=== PATIENT | female | born 1975 | race Caucasian/White ===

== ENCOUNTER 2018-07-15 09:24 | Outpatient (CLI) | payer OTHER ==
[~2018-07-15] VITALS: Ht 154.9 cm; Wt 86.4 kg
--- NOTE | ~2018-07-15 | HEMODYNAMI ---
PATIENT:YELENA WHITNEY MEDICAL RECORD: [id number] : 71 LOCATION:[facility] ADMISSION DATE: 07/15/18 Generatedon:07/15/201813:27 Patient name: YELENA WHITNEY Patient #: [id number] SSN: : 1975 Date of study: 07/15/2018 Page: Of Hemodynamic Procedure Report Patient Data Patient Demographics Procedure consent was obtained First Name: YELENA Gender: Female Last Name: DEVONTE : 1975 Patient #: [id number] Age: 43 year(s) Race: Additional ID: [id number] Contact details [address]: [address] [place] [address] State: [place] City: [place] Zip code: [address] Admission Admission Data Admission Date: 07/15/2018 Admission Time: 9:24 Arrival Date: 07/15/2018 Arrival Time: 13:00 Admit Source: Other Insurance Payor: Private health insurance Height (in.): 61 BSA: 1.85 (m2) Height (cm.): 154.94 BMI: 35.9 (kg/m2) Weight (lbs.): 190 Weight (kg.): 86.18 Lab Results Lab Result Date: 07/15/2018 Lab Result Time: 0:00 Biochemistry Name Units Result Min Max BUN mg/dl 17 --(---*)-- 7 18 Creatinine mg/dl 0.8 --(-*--)-- 0.6 1.3 CBC Name Units Result Min Max Hemoglobin g/dl 12.4 *-(----)-- 13.5 17.5 Procedure Procedure Types Cath Procedure Diagnostic Procedure C [facility] w/Coronaries Sedation Charges Moderate Sedation up to 15 minutes Procedure Description Procedure Date Procedure Date: 07/15/2018 Procedure Start Time: 13:11 Procedure End Time: 13:20 Procedure Staff Name Function Johann Graham MD Performing Physician Malka Gunderson RT Monitor Mike Rodriguez RN Nurse Sravanthi Mei RT Scrub Procedure Data Cath Procedure Fluoroscopy Diagnostic fluoroscopy Total fluoroscopy Time: 1.3 time: 1.3 min min Diagnostic fluoroscopy Total fluoroscopy dose: 336 dose: 336 mGy mGy Contrast Material Contrast Material Type Amount (ml) Isovue 300 47 Entry Location Entry Primary Successful Side Size Upsize Upsize Entry Closure Succes sful Closure Location (Fr) 1 (Fr) 2 (Fr) Remarks Device Remarks Femoral Right 6 Fr Vascade artery Short Closure System Estimated blood loss: 5 ml Diagnostic catheters Device Type Used For End Catheter Placement MULTIPACK JL 4.0 5Fr Left Coronary catheter Angiography MULTIPACK 3DRC 5Fr Right Coronary catheter Angiography MULTIPACK Pigtail 5 Fr LV Angiography catheter Procedure Complications No complications Procedure Medications Medication Administration Route Dosage Oxygen etCO2 Nasal cannula 2 l/min Lidocaine 2% added to field 20 Heparin Flush Bag added to field 2 bags (1000units/500ml NS) 0.9% NaCl I.V. 100 ml/hr Versed I.V. 2 mg Fentanyl I.V. 100 mcg Versed I.V. 1 mg Fentanyl I.V. 50 mcg Hemodynamics Rest BSA: 1.85 (m2) HGB: 12.4 (g/dl) O2 Consumption: Estimated: 191.51 (ml/min) O2 Co nsumption indexed: Estimated:103.52 (ml/min/m) Heart Rate: 80 (bpm) Pressure Samples Time Site Value (mmHg) Purpose Heart Use Rate(bpm) 13:16 LV 97/2,8 Snapshot 74 13:17 AO 101/61(78) Pullback 72 13:17 LV 91/7,11 Pullback 72 Gradients Valve Time Site 1 Site 2 Mean SEP/DFP Peak To Heart Use (mmHg) (sec/min) Peak Rate (mmHg) (bpm) Aortic 13:17 LV AO 0 11 0 72 91/7,11 101/61(78) Calculations Valve P-P Mean Valve Index Valve Source Name Gradient Area Flow (cm2) Aortic 0 0 0 0 Snapshots Pre Cath Intra NCS Post Cath Vital Signs Time Heart Resp SPO2 etCO2 NIBP (mmHg) Rhythm Pain Sedation Rate (ipm) (%) (mmHg) Status Level (bpm) 12:56:16 80 15 100 36.4 127/89(112) NSR 0 (11) 10(A) , No pain 13:00:22 74 18 100 39.4 128/83(99) NSR 0 (11) 10(A) , No pain 13:04:32 73 12 100 41.6 129/79(97) NSR 0 (11) 10(A) , No pain 13:08:46 69 16 99 39.3 103/60(77) NSR 0 (11) 9(A) , No pain 13:12:50 68 16 99 20 103/64(80) NSR 0 (11) 9(A) , No pain 13:16:57 60 16 99 14.8 98/53(77) NSR 0 (11) 9(A) , No pain 13:20:59 69 17 100 13.3 111/63(81) NSR 0 (11) 9(A) , No pain 13:22:27 68 17 99 24.4 106/60(78) NSR 0 (11) 10(A) , No pain Medications Time Medication Route Dose Verified Delivered Reason Notes Effe ctiveness by by 12:55:17 Oxygen etCO2 2 Johann Buffie used for Nasal l/min [facility] Iv[facility] Rodriguez mechanical maintenance supervisor cannula 12:55:23 Lidocaine 2% added 20ml Johann Buffie used for to vial [facility] Iván Rodriguez mechanical maintenance supervisor field DAI 12:55:51 Heparin Flush added 2 Johann Buffie used for Bag to bags SantosIván Rodriguez mechanical maintenance supervisor (1000units/500ml field DAI NS) 12:56:00 0.9% NaCl I.V. 100 Johann Buffie Per ml/hr St Iván Rodriguez RN physician 13:03:41 Versed I.V. 2 mg Johann Buffie for SantosIván Rodriguez RN sedation 13:03:48 Fentanyl I.V. 100 Johann Buffie for mcg SantosIván Rodriguez RN sedation 13:11:42 Versed I.V. 1 mg Johann Buffie for SantosIván Rodriguez RN sedation 13:11:47 Fentanyl I.V. 50 Johann Buffie for mcg Santos Rodriguez RN sedation Procedure Log Time Note 12:29:07 Patient Height : 61 inches 12:29:14 Patient Weight : 190 lbs 12:31:08 Lab Result : Hemoglobin 12.4 g/dl 12:31:08 Lab Result : Creatinine 0.8 mg/dl 12:31:08 Lab Result : BUN 17 mg/dl 12:31:32 Diagnostic Cath status Elective 12:31:35 Sravanthi Sigifredo RT(R) sent for patient. Start room use. 12:31:37 Time tracking: Regular hours (M-F 7:00 - 5:00) 12:31:42 Plan of Care:Hemodynamics will remain stable., Cardiac rhythm will remain stable., Comfort level will be maintained., Respiratory function will remain adequate., Patient/ family verbilizes understanding of procedure., Procedure tolerated without complication., Recovers from procedure without complications.. 12:33:49 Arrival Date: 07/15/2018 1:00:00 PM 12:33:55 Insurance Payor : Private health insurance 12:33:57 Admit Source: Other 12:55:01 Patient received from Pre/Post Procedure Room to CCL 2 Alert and oriented. Tansferred to table in Supine position. 12:55:03 Warm blankets applied, and pa hugger turned on for patient comfort. 12:55:03 Correct patient and procedure confirmed by team. 12:55:04 Signed procedure consent form obtained from patient. 12:55:05 ECG and BP/O2 sat monitors applied to patient. 12:55:14 Vital chart was started 12:55:16 Baseline sample Acquired. 12:55:17 Oxygen 2 l/min etCO2 Nasal cannula was administered by Mike Rodriguez RN; used for procedure; 12:55:23 Lidocaine 2% 20ml vial added to field was administered by Mike Rodriguez RN; used for procedure; 12:55:51 Heparin Flush Bag (1000units/500ml NS) 2 bags added to field was administered by Mike Rodriguez RN; used for procedure; 12:56:00 0.9% NaCl 100 ml/hr I.V. was administered by Mike Rodriguez RN; Per physician; 12:56:03 Rhythm: sinus rhythm 12:56:11 Full Disclosure recording started 12:56:15 H&P Date Dictated: 07/15/2018 Within 30 days and on chart., H&P Addendum completed by physician on day of procedure. (MUST COMPLETE FOR ALL OUTPATIENTS). 12:56:18 Pre-procedure instructions explained to patient. 12:56:18 Pre-op teaching completed and patient verbalized understanding. 12:56:19 Family in waiting room. 12:56:23 Patient NPO since Midnight. 12:56:26 Is the patient allergic to Iodine/contrast media? No. 12:56:26 Was the patient premedicated? No 12:56:31 Is patient on blood thinner?No 12:56:40 Patient diabetic? No. 12:56:42 Previous problem with sedation/anesthesia? No ? 12:57:05 Snore? Yes 12:57:07 Sleep apnea? No 12:57:08 Deviated septum? No 12:57:09 Opens mouth fully? Yes 12:57:09 Sticks out tongue? Yes 12:57:19 Airway obstruction? Yes asthma 12:57:23 Dentures? Yes in tight 12:57:33 Patient not . Patient has had tubal. 12:57:43 Pre procedure: right dorsailis pedis pulse 2+ Normal; easily identifiable; not easily obliterated 12:57:45 Pre procedure: left dorsailis pedis pulse 2+ Normal; easily identifiable; not easily obliterated 12:58:24 Patient pain scale 0/10 ?. 12:58:32 IV patent on arrival in left forearm with 0.9% NaCl at [facility]. 12:58:34 Lab results completed and on chart. 13:02:17 Right groin area was prepped with chlora-prep and draped in sterile fashion 13:02:18 Alarms reviewed by R. N. 13:02:19 Sharps counted by scrub and verified by R.N. 13:02:25 Physician arrived 13:02:26 --------ALL STOP TIME OUT------ 13:02:26 Final Timeout: patient, procedure, and site verified with staff and physician. All members of the team are in agreement. 13:02:28 Right groin site verified by team. 13:02:31 Physical assessment completed. ASA score P 2 - A patient with mild systemic disease as per Johann Graham MD. 13:02:35 Sedation plan: IV Moderate Sedation Medication:Versed, Fentanyl 13:02:44 Use device set Femoral Dx 13:02:45 ACIST Syringe (70643) opened to sterile field. 13:02:46 Bag Decanter () opened to sterile field. 13:02:46 Medline Cath Pack ([id number]) opened to sterile field. 13:02:46 DIAGNOSTIC WIRE .035 260cm J wire (407358) opened to sterile field. 13:02:48 ACIST Hand Control (52869) opened to sterile field. 13:02:48 ACIST Manifold (48644) opened to sterile field. 13:02:48 DIAGNOSTIC Multipack 5Fr catheter set ([id number]) opened to sterile field. 13:02:49 Tegaderm 4 x 4 (1626W) opened to sterile field. 13:02:50 SHEATH Prelude 5Fr 0.035 (MXI-6C-09-035) opened to sterile field. 13:03:41 Versed 2 mg I.V. was administered by Mike Rodriguez RN; for sedation; 13:03:48 Fentanyl 100 mcg I.V. was administered by Mike Rodriguez RN; for sedation; 13:11:10 Procedure started. 13:11:16 Local anesthetic to right femoral artery with Lidocaine 2% by Johann Graham MD.INITIAL ACCESS ONLY 13:11:38 A 6 Fr Short sheath was inserted into the Right Femoral artery 13:11:42 Versed 1 mg I.V. was administered by Mike Rodriguez RN; for sedation; 13:11:47 Fentanyl 50 mcg I.V. was administered by Mike Rodriguez RN; for sedation; 13:12:31 A MULTIPACK JL 4.0 5Fr catheter was advanced over the wire and used for Left Coronary Angiography. 13:12:57 LCA angiography performed. 13:13:00 Injector settings: Ml/sec: 3, Volume: 6, 13:13:26 Catheter removed. 13:13:40 A MULTIPACK 3DRC 5Fr catheter was advanced over the wire and used for Right Coronary Angiography. 13:15:24 RCA angiography performed. 13:15:29 Injector settings: Ml/sec: 3, Volume: 6, 13:15:33 Catheter removed. 13:15:41 A MULTIPACK Pigtail 5 Fr catheter was advanced over the wire and used for LV Angiography. 13:16:49 LV hemodynamics recorded. 13:16:50 LV gram done using GREENE 13:17:25 EF : 55 % 13:17:27 Catheter removed. 13:18:30 VASCADE 5Fr ([id number]) opened to sterile field. 13:18:42 Sheath removed intact; hemostasis achieved with Vascade Closure System to the Right Femoral artery. 13:18:44 Procedure ended.(Physican Out) 13:19:17 Fluoroscopy time 01.30 minutes. 13:19:21 Fluoroscopy dose: 336 mGy 13:19:21 Flurop Dose total: 336 13:20:00 Contrast amount:Isovue 300 47ml. 13:20:02 Sharps counted by scrub and verified by R.N. 13:20:05 Insertion/operative site no bleeding no hematoma. 13:20:08 Post-op/insertion site Left Femoral artery dressed using a 4 x 4 and Tegaderm. 13:20:16 Post left femerol artery:stable 13:20:18 Post Procedure Pulses reassessed and unchanged 13:20:20 Post procedure rhythm: unchanged. 13:20:23 Estimated blood loss: 5 ml 13:20:25 Post procedure instruction explained to patient.Patient verbalizes understanding. 13:20:25 Patient needs reinforcement of post procedure teaching. 13:20:41 Procedure type changed to Cath procedure, Diagnostic procedure, LHC, LHC w/Coronaries, Sedation Charges, Moderate Sedation up to 15 minutes 13:20:42 Procedure and supply charges have been captured, reviewed, submitted and are correct. 13:20:46 Procedure Complication : No complications 13:20:48 Vital chart was stopped 13:20:49 See physician's report for complete and final results. 13:20:52 Report given to Pre/Post Procedure Room. 13:20:55 Patient transfered to Pre/Post Procedure Room with Stretcher. 13:20:57 Procedure ended. 13:20:57 Full Disclosure recording stopped 13:21:02 End room use (Document Last) Device Usage Item Name Manufacture Quantity Catalog Number Hospital Part Current M inimal Lot# / Charge Number Stock Stock Serial# Code ACIST Syringe Acist 1 55478 026902 612227 464973 2 0 ([id number]) [employer] Bag Decanter Microtek 1 191220 08625 352447 5 () [employer] Inc[employer] Medline Cath Medline 1 [id number] 96522 542945 5 Pack ([id number]) DIAGNOSTIC WIRE St Ferdinand 1 612081 874360 318243 573338 3 0 .035 260cm J wire ([id number]) ACIST Hand Acist 1 20128 283291 489502 482179 5 Control (34516) [employer] ACIST Manifold Acist 1 35098 037804 173294 759987 5 (37870) [employer] DIAGNOSTIC Cardinal 1 [id number] 080040 57436 405185 3 0 Multipack 5Fr Health catheter set ([id number]) Tegaderm 4 x 4 3M 1 1626W 334273 053390 137174 5 (1626W) SHEATH Prelude Merit 1 [id number]-6M-58-035 928610 551950 083433 5 5Fr 0.035 Medical ([id number]-69-035) MULTIPACK JL Cardinal 1 135204 5 4.0 5Fr Health catheter MULTIPACK 3DRC Cardinal 1 [id number] 5 5Fr catheter Health MULTIPACK Cardinal 1 [id number] 5 Pigtail 5 Fr Health catheter VASCADE 5Fr Cardiva 1 [id number] 919424 43779 150530 1 0 ([id number]) Medical[employer] Inc[employer] Signature Audit [place] Stage Time Signature Unsigned Intra-Procedure 07/15/2018 Malka Gunderson 1:27:18 PM RT(R) Signatures Monitor : Malka Gunderson RT Signature : Date : Time : [id number] [place] [address]
--- NOTE | ~2018-07-15 | OP ---
PATIENT NAME: YELENA WHITNEY MEDICAL RECORD: [id number] :71 LOCATION:[facility] ADMISSION DATE: SURGEON: PAUL JUSTIN MD DATE OF OPERATION: 07/15/2018 PROCEDURE: Left heart catheterization, selective coronary angiography, right femoral artery approach. CATHETERS: A 5-Frisian sheath, 5/4 left and right Nirav, 5/4 pig. The procedure was well tolerated. The patient was returned to the kumar. Sheath was removed. Vascade device was placed. FINDINGS: Left ventriculography in 30-degree GREENE view: Normal wall motion and normal systolic function. CORONARY ANATOMY: LEFT MAIN: Left main is free of disease. LAD: Free of disease in the diagonal system. CIRCUMFLEX: Free from disease in the marginal system. RIGHT CORONARY ARTERY: Dominant artery, gives rise to PDA, free of disease. IMPRESSION: Normal LV systolic function. Normal coronary anatomy. TRANSINT:[id number] Voice Confirmation ID: [id number] DOCUMENT ID: [id number] PAUL JUSTIN MD at 1302 CC: [id number] DICTATION DATE: 07/15/18 1324 LOCOMOTIVE CRANE OPERATOR HELPER: 07/15/18 1532 DEP CLI 07/15/18 [id number] [place] [address]
[2018-07-15] MEDS ORDERED: NEURONTIN600 MG PO (10:27)
[2018-07-15] MEDS ORDERED: LOSARTAN POTASS25 MG PO (10:27)
[2018-07-15] MEDS ORDERED: REQUIP1 MG PO (10:28)
[2018-07-15] MEDS ORDERED: CELEBREX200 MG PO (10:28)
[2018-07-15] MEDS ORDERED: BACLOFEN10 MG PO (10:29)
[2018-07-15] MEDS ORDERED: COLACE100 MG PO (10:29)
[2018-07-15 10:43] VITALS: BP 129/89; Ht 154.9 cm; Wt 86.4 kg
[2018-07-15] MEDS ORDERED: VENTOLIN HFA18 GM INH (10:49)
[2018-07-15] MEDS ORDERED: ALBUTEROL0.63 MG/3 INH (10:50)
[2018-07-15 10:53] LABS: BASOPHILS 0.2 % (0-2); EOSINOPHILS 0 % (0-7); HEMOGLOBIN 12.4 g/dL (12-16); IMMATURE GRANULOCYTES 0.2 % (0-5); LYMPHOCYTES 19.2 % (15-50); MCH 26.7 pg (26.0-34.0); MCHC 32.6 g/dL (31.0-37.0); MCV 81.9 fL (80.0-100.0); MEAN PLATELET VOLUME 9.6 fL (7.4-10.4); MONOCYTES 7.1 % (2-11); NEUTROPHILS 73.3 % (40-80); PLATELET COUNT 239 10x3/uL (130-400); RBC 4.64 10x6/uL (4.00-5.40); RDW 13.4 % (11.5-14.5); WBC 5.9 10x3/uL (4.8-10.8)
[2018-07-15 11:05] LABS: CALC OSMOLALITY 281 mosm/kg (275-300); CALCIUM 9.4 mg/dL (8.5-10.1); CARBON DIOXIDE 27.1 mmol/L (21.0-32.0); CHLORIDE - SERUM 103 mmol/L (98-107); CREATININE - SERUM 0.8 mg/dL (0.6-1.3); GLUCOSE 110 mg/dL (74-106); POTASSIUM - SERUM 3.6 mmol/L (3.5-5.1); SODIUM 140 mmol/L (136-145); UREA NITROGEN 17 mg/dL (7-18); eGFR NON AFRICAN AMERICAN 82 mL/min (90-120)
== END 2018-07-15 15:55 | disposition home or self-care (01) ==
LOC: D.CATH 09:24
PROVIDERS: Internal Medicine Interventional Cardiology
DX: I20.9 Angina pectoris, unspecified (principal); Z01.812 Encounter for preprocedural laboratory examination